=== PATIENT | female | born 1935 | race Caucasian/White ===

== ENCOUNTER 2023-03-01 17:13 | Emergency (ER) | payer OTHER ==
--- NOTE | 2023-03-01 18:36 | RAD REPORT ---
EXAM DESCRIPTION: RAD - Forearm Right - 03/01/2023 6:28 pm CLINICAL HISTORY: Right arm pain FINDINGS: No fracture is seen. Exostosis extends off the proximal radius
--- NOTE | 2023-03-01 19:33 | EDPHYS ---
Physician Documentation [facility] Name: Chelsea Miller Age: 88 yrs Sex: Female : 1935 Arrival Date: 03/01/2023 Time: 17:13 Bed DIS1 Private MD: ED Physician Nahun Masters HPI: 03/01 22:59 This 88 yrs old Female presents to ER via Wheelchair with complaints of Laceration To kb Hand, Hand Swelling. 22:59 Patient is an 88-year-old female who presents for skin tear to right forearm with kb swelling to right hand. States she hit the door on the way out yesterday causing injury. Was seen at another ER after incident and dressing applied but bleeding continued.. Historical: - Allergies: 17:38 blood pressure medicine; cm10 - Home Meds: 17:38 Entresto 49-51 mg oral tablet 2 times per day [Active]; Eliquis oral [Active]; cm10 pantoprazole oral [Active]; Amiodarone Oral [Active]; Furosemide Oral [Active]; pravastatin oral [Active]; Spironolactone Oral [Active]; clopidogrel oral [Active]; Jardiance oral [Active]; Ferrous Sulfate Oral [Active]; levothyroxine oral [Active]; - PMHx: 17:38 pacemaker; A-fib; Hypothyroidism; Congestive heart failure; Hypercholesterolemia; cm10 - Immunization history:: Adult Immunizations up to date. - Social history:: Smoking status: Patient denies any tobacco usage or history of. ROS: 22:57 Constitutional: Negative for fever, chills, and weight loss, kb 22:57 MS/extremity: Positive for swelling, of the right hand, 22:57 Skin: Positive for of the dorsal aspect of right forearm, skin tear, 22:57 All other systems are negative, Exam: 22:57 Constitutional: This is a well developed, well nourished patient who is awake, alert, kb and in no acute distress. Head/Face: Normocephalic, atraumatic. ENT: Moist Mucous membranes Respiratory: Respirations even and unlabored. No increased work of breathing. Talking in full sentences MS/ Extremity: Pulses equal, no cyanosis. Neurovascular intact. Full, normal range of motion. Neuro: Awake and alert, GCS 15, oriented to person, place, time, and situation. Moves all extremities. Normal gait. 22:57 Skin: skin tear to right forearm. Vital Signs: 17:36 BP 166 / 79; Pulse 60; Resp 18; Temp 98.5(TE); Pulse Ox 100% on R/A; Weight 63.5 kg cm10 (R); Height 5 ft. 2 in. ; Pain 5/10; 17:36 Body Mass Index 25.61 (63.50 kg, 157.48 cm) cm10 17:36 Pain Scale: Adult cm10 MDM: 17:21 Patient medically screened. kb 22:57 Differential diagnosis: superficial laceration, skin tear, abrasion, contusion, kb fracture. Data reviewed: vital signs, nurses notes. Historians other than the Patient: Daughter/Son: daughter. Counseling: I had a detailed discussion with the patient and/or guardian regarding the historical points, exam findings, and any diagnostic results supporting the discharge/admit diagnosis, radiology results, the need for outpatient follow up, a family practitioner, to return to the emergency department if symptoms worsen or persist or if there are any questions or concerns that arise at home. ED course: skin positioned over tear and steristrips applied. bleeding controlled with pressure. Dressing applied. Pt and daughter educated on wound care. 03/01 17:44 Order name: Forearm Right XRAY; Complete Time: 18:38 kb Administered Medications: No medications were administered Disposition Summary: 03/01/23 19:33 Discharge Ordered Notes: Location: Home kb Condition: Stable kb Diagnosis - Skin tear right forearm kb Followup: kb - With: Emergency Department - When: As needed - Reason: Worsening of condition Followup: kb - With: Private Physician - When: 2 - 3 days - Reason: Recheck today's complaints, Continuance of care, Re-evaluation by your physician Discharge Instructions: - Discharge Summary Sheet kb - Skin Tear, [id number] kb Forms: - Medication Reconciliation Form kb - Thank You Letter kb - Antibiotic Education kb - Prescription Opioid Use kb - Patient Portal Instructions kb - Leadership Thank You Letter kb Signatures: Dispatcher [employer] EDMaureen Doan, Sakshi Murray, RN RN cm10
--- NOTE | 2023-03-01 19:33 | ER ---
Nurse's Notes [facility] Name: Chelsea Miller Age: 88 yrs Sex: Female : 1935 Arrival Date: 03/01/2023 Time: 17:13 Bed DIS1 Private MD: Diagnosis: Skin tear right forearm Presentation: 03/01 17:36 Chief complaint: Patient states: bleeding to right arm onset yesterday. Pt states that cm10 she hit her arm on the door and has been bleeding since yesterday. Pt reports taking Eliquis. Coronavirus screen: Vaccine status: Patient reports receiving the 2nd dose of the covid vaccine. Client denies travel out of the [place] in the last 14 days. Ebola Screen: Patient denies travel to an Ebola-affected area in the 21 days before illness onset. No symptoms or risks identified at this time. Complicating Factors: There are no complicating factors for this patient. Initial Sepsis Screen: Does the patient meet any 2 criteria? No. Patient's initial sepsis screen is negative. Does the patient have a suspected source of infection? No. Patient's initial sepsis screen is negative. Risk Assessment: Do you want to hurt yourself or someone else? Patient reports no desire to harm self or others. Onset of symptoms was March 01, 2023. 17:36 Method Of Arrival: Wheelchair cm10 17:36 Acuity: BROOKE 4 cm10 Historical: - Allergies: 17:38 blood pressure medicine; cm10 - Home Meds: 17:38 Entresto 49-51 mg oral tablet 2 times per day [Active]; Eliquis oral [Active]; cm10 pantoprazole oral [Active]; Amiodarone Oral [Active]; Furosemide Oral [Active]; pravastatin oral [Active]; Spironolactone Oral [Active]; clopidogrel oral [Active]; Jardiance oral [Active]; Ferrous Sulfate Oral [Active]; levothyroxine oral [Active]; - PMHx: 17:38 pacemaker; A-fib; Hypothyroidism; Congestive heart failure; Hypercholesterolemia; cm10 - Immunization history:: Adult Immunizations up to date. - Social history:: Smoking status: Patient denies any tobacco usage or history of. Screenin:00 [facility] ED Fall Risk Assessment (Adult) Score/Fall Risk Level 0 - 2 = Low Risk hb Oriented to surroundings, Maintained a safe environment. 19:00 Abuse screen: Denies threats or abuse. Denies injuries from another. Nutritional hb screening: No deficits noted. Tuberculosis screening: No symptoms or risk factors identified. Assessment: 19:00 General: Appears in no apparent distress. Behavior is calm, cooperative. Pain: Pain hb currently is 5 out of 10 on a pain scale. Neuro: Level of Consciousness is awake, alert, obeys commands, Oriented to person, place, time, situation. Cardiovascular: Patient's skin is warm and dry. Respiratory: Respiratory effort is even, unlabored, Respiratory pattern is regular, symmetrical. GI: No signs and/or symptoms were reported involving the gastrointestinal system. : No signs and/or symptoms were reported regarding the genitourinary system. EENT: No signs and/or symptoms were reported regarding the EENT system. Derm: Skin is pink, warm \T\ dry. Musculoskeletal: Reports right hand pain. Vital Signs: 17:36 BP 166 / 79; Pulse 60; Resp 18; Temp 98.5(TE); Pulse Ox 100% on R/A; Weight 63.5 kg cm10 (R); Height 5 ft. 2 in. ; Pain 5/10; 17:36 Body Mass Index 25.61 (63.50 kg, 157.48 cm) cm10 17:36 Pain Scale: Adult cm10 ED Course: 17:17 Patient arrived in ED. mg5 17:21 [facility]ureen Black FNP-C [facility]. kb 17:21 Nahun Masters MD is Attending Physician. kb 17:38 Triage completed. cm10 17:45 Arm band placed on Patient placed in an exam room, on a stretcher. cm10 18:30 Forearm Right XRAY In Process Unspecified. EDMS 19:00 Patient has correct armband on for positive identification. Provided Education on: . hb 19:00 No provider procedures requiring assistance completed. Patient did not have IV access hb during this emergency room visit. Administered Medications: No medications were administered Medication: 19:59 VIS not applicable for this client. hb Outcome: 19:33 Discharge ordered by . kb 19:35 Discharged to home ambulatory, hb 19:35 Condition: stable 19:35 Discharge instructions given to patient, Instructed on discharge instructions, follow up and referral plans. medication usage, Demonstrated understanding of instructions, follow-up care, medications, 19:59 Patient left the ED. hb Signatures: Dispatcher [employer] EDMS Maureen Black, Mindy Castle RN RN Sakshi Segura RN RN cm10 Dory Rao 5
== END 2023-03-01 19:59 | disposition home or self-care (01) ==
LOC: ER 17:13
DX: S51.811A Laceration without foreign body of right forearm, initial encounter (principal); I48.91 Unspecified atrial fibrillation; Z79.01 Long term (current) use of anticoagulants; Z95.0 Presence of cardiac pacemaker
CPT/HCPCS: 99282